=== PATIENT | female | born 1955 | race Hispanic/Latino ===

== ENCOUNTER 2016-11-03 07:19 | Day surgery (SDC) | payer MEDICARE ==
[2016-10-28 13:51] VITALS: BMI 29.5
[2016-11-03] MEDS ORDERED: Lidocaine 2% Inj (20ml) ONE (08:50)
[2016-11-03] MEDS ORDERED: Propofol 10 mg/ml Inj (20 ML) ONE (08:50)
[2016-11-03] MEDS ORDERED: Simethicone 40 mg/0.6 ml Liquid (30 ml) ONE (08:59)
[2016-11-03] MEDS ORDERED: Sodium Chloride 0.9% 1,000 ML IV SCH (09:15)
[2016-11-03 09:53] VITALS: RESP 18
[2016-11-03 10:03] VITALS: BP 121/76; PULSE 51; TEMP 97.9; O2SAT 99
== END 2016-11-03 11:11 | disposition home or self-care (01) ==
LOC: ENDO 07:19
PROVIDERS: ATTEND Internal Medicine Gastroenterology
DX: K62.9 Disease of anus and rectum, unspecified (principal); Q43.8 Other specified congenital malformations of intestine; K64.8 Other hemorrhoids; Z88.0 Allergy status to penicillin
CPT/HCPCS: 45378; J2704; J7040

== ENCOUNTER 2018-04-21 11:39 | Emergency (ER) | payer MEDICARE ==
[2018-04-21 11:40] VITALS: BMI 29.5
[2018-04-21 11:54] VITALS: RESP 18; TEMP 98.1
[2018-04-21 11:55] VITALS: O2SAT 100
--- NOTE | 2018-04-21 12:31 | ED PDOC ---
Arrival/HPI - General Chief Complaint: Trauma Time Seen by Provider: 04/21/18 12:11 Historian: Patient - History of Present Illness Narrative History of Present Illness (Text): 04/21/18 12:14 62 F with PMHx of osteopenia presents with cc of pain to hands, buttocks, and head pain toward back of head status post slipping and falling on a patch of ice prior to arrival. Pt reports she hit her butt first, then the back of her head, and her hands. Patient describes the pain on buttocks, back of head, and hands are soreness. Patient notes associated right-sided neck stiffness. Pt denies any loss of consciousness, hip pain, leg pain, or any other complaints. PMD: Stan Levy Time/Duration: Prior to Arrival Symptom Onset: Sudden Symptom Course: Unchanged Context: Slipped (Patient notes she slipped and fell on a patch of ice ) Past Medical History - Provider Review Nursing Documentation Reviewed: Yes - Cardiac Hx Pacemaker: No - Neurological Hx Paralysis: No - Hematological/Oncological Hx Blood Transfusions: No Hx Blood Transfusion Reaction: No - Musculoskeletal/Rheumatological Hx Musculoskeletal Disorders: Yes (OSTEOPENIA) - Psychiatric Hx Emotional Abuse: No Hx Physical Abuse: No Hx Substance Use: No - Anesthesia Hx Anesthesia: Yes Hx Anesthesia Reactions: No Hx Malignant Hyperthermia: No - Suicidal Assessment Feels Threatened In Home Enviroment: No Family/Social History - Physician Review Nursing Documentation Reviewed: Yes Family/Social History: No Known Family HX Smoking Status: Never Smoked Hx Alcohol Use: Yes (OCC WINE) Hx Substance Use: No Hx Substance Use Treatment: No Allergies/Home Meds Allergies/Adverse Reactions: Allergies Penicillins Allergy (Intermediate, Verified 10/28/16 13:52) RASH Home Medications: Home Meds Medication Instructions Recorded Confirmed Bumetanide [Bumex] 2 mg PO QOTHERDAY 09/30/11 11/03/16 Levothyroxine [Synthroid] 125 mcg PO QAM 09/30/11 11/03/16 Topiramate [Topamax] 225 mg PO HS 09/30/11 11/03/16 Eletriptan HBr [Relpax] 40 mg PO PRN PRN 10/28/16 11/03/16 Ibuprofen [Ibuprofen Ib] 800 mg PO PRN PRN 09/06/17 09/12/17 Cholecalciferol [Vitamin D] 1,000 unit PO DAILY 11/03/16 11/03/16 [place]-3 Fatty Acids/Fish Oil [Fish 1 - 2 tab PO DAILY 11/03/16 11/03/16 Oil 1,000 mg Capsule] Vitamin B Complex [Nature's Blend 1 tab PO DAILY 11/03/16 11/03/16 Balance B-100] Review of Systems - Physician Review All systems were reviewed & negative as marked: Yes (All other systems negative except that noted in the HPI.) Physical Exam - Physical Exam Narrative Physical Exam (Text): Gen: VS reviewed, alert, well developed, well nourished, nontoxic, mild distress Head: mild hematoma to occipital scalp Eye: EOMI, PERRL Neck: no JVD, supple, no adenopathy. Questionable midline spine tenderness CV: regular rate, regular rhythm, no rubs,no murmur, S1, S2 Pulm: no distress, clear to auscultation, no wheeze, no rhonchi, breath sounds equal, no rales Abd: soft, nontender, no guarding, no rebound, no rigidity Ext: No edema. Mild tenderness at left first MCP joint. There is no snuff box tenderness. Full ROM of the affected finger. Skin: good color, no rash, no cyanosis Psych: responds appropriately to questions, normal affect Neuro: oriented x3, CN2-12 intact grossly, motor intact, sensation intact Vital Signs Reviewed: Yes Vital Signs Temp Pulse Resp BP Pulse Ox 04/21/18 11:40 98.1 F 72 18 127/78 100 Temperature: Afebrile Blood Pressure: Normal Pulse: Regular Respiratory Rate: Normal Appearance: Positive for: Well-Appearing, Non-Toxic Pain Distress: Mild Mental Status: Positive for: Alert and Oriented X 3 Medical Decision Making ED Course and Treatment: 04/21/18 12:14 Impression: 62 year old female who presents to the Emergency department for pain to hands, buttocks, and head pain toward back of head status post slipping and falling on a patch of ice prior to arrival. Differential Diagnosis included but are not limited to: Plan: -- CT of cervical spine w/o contrast -- CT of head w/o contrast -- X-Ray of hand left thumb -- Tylenol -- Reassess and disposition Prior Visits: Notes and results from previous visits were reviewed. Progress Notes: 04/21/18 13:47 patient seen for buttock and head injury after slip and fall on ice, no vomit, no LOC, sustained injury to left wrist. patient reports soreness in the buttock area but no significant pain. patient agreeable to forego saccrum imaging for now but agrees to return for severe or unbearable pain. patient has been in a damon as she is expected to [facility] a [facility] today. - RAD Interpretation Narrative RAD Interpretations (Text): CT of head reviewed by radiologist, shows: Dictated By: Obed Milian MD Dictated Date/Time: 04/21/18 13:31 Impression: Normal CT of the head. CT of cervical spine reviewed by radiologist, shows: Dictated By: Obed Milian MD Dictated Date/Time: 04/21/18 13:33 Impression: Unremarkable CT of the cervical spine. X-Ray of hand left thumb reviewed by radiologist, shows: Dictated By: Obed Milian MD Dictated Date/Time: 04/21/18 13:38 Impression: Normal left hand radiographs. Radiology Orders: 04/21/18 12:17 HEAD W/O CONTRAST [CT] Stat 04/21/18 12:18 CERVICAL SPINE W/O CONTRAST [CT] Stat HAND LEFT THUMB [RAD] Stat Plant Physiology Teacher: Radiologist - Scribe Statement The provider has reviewed the documentation as recorded by the Scribe Marina Hicks All medical record entries made by the Scribe were at my direction and perso lashaun dictated by me. I have reviewed the chart and agree that the record accurately reflects my personal performance of the history, physical exam, medical decision making, and the department course for this patient. I have also personally directed, reviewed, and agree with the discharge instructions and disposition. Disposition/Present on Arrival - Present on Arrival Any Indicators Present on Arrival: No History of DVT/PE: No History of Uncontrolled Diabetes: No Urinary Catheter: No History of Decub. Ulcer: No History Surgical Site Infection Following: None - Disposition Have Diagnosis and Disposition been Completed?: Yes Diagnosis: Head injury, Wrist sprain, Contusion, buttock Disposition: HOME/ ROUTINE Disposition Time: 13:41 Patient Plan: Discharge Patient Problems: Current Active Problems Problem Status Onset Head injury Acute Wrist sprain Acute Contusion, buttock Acute Condition: STABLE Discharge Instructions (ExitCare): Closed Head Injury (DC), Common Wrist Injuries (DC) Additional Instructions: return for any new or worsening symptoms. follow up with a orthopedic surgeon for follow up care for the wrist injury. Referrals: Stan Perera MD [Primary Care Provider] - Follow up with primary Obed Guzman DO [Staff Provider] - Follow up with primary Forms: [employer] ([place])
--- NOTE | 2018-04-21 13:35 | CT ---
Date of service: 04/21/2018 PROCEDURE: CT HEAD WITHOUT CONTRAST. HISTORY: trauma COMPARISON: 02/24/2012 TECHNIQUE: Axial computed tomography images were obtained through the head/brain without intravenous contrast. Radiation dose: Total exam DLP = 756.62 mGy-cm. This CT exam was performed using one or more of the following dose reduction techniques: Automated exposure control, adjustment of the mA and/or kV according to patient size, and/or use of iterative reconstruction technique. FINDINGS: HEMORRHAGE: No intracranial hemorrhage. BRAIN: No mass effect or edema. No atrophy or chronic microvascular ischemic changes. VENTRICLES: Unremarkable. No hydrocephalus. CALVARIUM: Unremarkable. PARANASAL SINUSES: Unremarkable as visualized. No significant inflammatory changes. MASTOID AIR CELLS: Unremarkable as visualized. No inflammatory changes. OTHER FINDINGS: None. IMPRESSION: Normal CT of the Head.
--- NOTE | 2018-04-21 13:37 | CT ---
Date of service: 04/21/2018 PROCEDURE: CT Cervical Spine without contrast HISTORY: trauma COMPARISON: None available. TECHNIQUE: Axial computed tomography images were obtained of the cervical spine without the use of intravenous contrast. Coronal and sagittal reformatted images were created and reviewed. Radiation dose: Total exam DLP = 461.46 mGy-cm. This CT exam was performed using one or more of the following dose reduction techniques: Automated exposure control, adjustment of the mA and/or kV according to patient size, and/or use of iterative reconstruction technique. FINDINGS: VERTEBRAE: No fracture. Normal alignment. No destructive bony lesion. DISCS/SPINAL CANAL/NEURAL FORAMINA: No significant central canal or neural foraminal stenosis. Discs heights are grossly preserved. PARASPINAL SOFT TISSUES: Unremarkable. OTHER FINDINGS: None. IMPRESSION: Unremarkable CT of the cervical spine.
--- NOTE | 2018-04-21 13:42 | RAD ---
PROCEDURE: Left Hand Radiographs. HISTORY: injury, focus 1st MCP COMPARISON: None. FINDINGS: BONES: Normal. No fracture. JOINTS: Normal. No osteoarthritic changes. SOFT TISSUES: Normal. OTHER FINDINGS: None. IMPRESSION: Normal left hand radiographs.
[2018-04-21 14:00] VITALS: BP 126/55; PULSE 75
== END 2018-04-21 14:07 | disposition home or self-care (01) ==
LOC: ED 11:39
DX: S09.90XA Unspecified injury of head, initial encounter (principal); S63.502A Unspecified sprain of left wrist, initial encounter; S30.0XXA Contusion of lower back and pelvis, initial encounter; W00.0XXA Fall on same level due to ice and snow, initial encounter